=== PATIENT | female | born 1965 | race Caucasian/White ===

== ENCOUNTER 2017-01-10 12:47 | Emergency (ER) | payer OTHER ==
[~2017-01-10] VITALS: Ht 170.2 cm; Wt 79.5 kg
[2017-01-10 13:25] VITALS: Ht 170.2 cm; Wt 79.5 kg
[2017-01-10] MEDS ORDERED: MINE3.5O30 RIGHT EYE (15:20)
[2017-01-10] MEDS ORDERED: BENA5TAB2 PO (15:20)
--- NOTE | 2017-01-10 15:29 | ERD ---
ER Documentation Chief Complaint Date/Time DATE: 01/10/17 TIME: 15:27 Chief Complaint right eye redness, itchiness and minor pain x 8 days HPI This 51-year-old female complains of some redness of the right eye for last 3 days patient has a history of trauma, visual changes, fevers. She has a history of hypertension or inciting events. She is mild bitemporal headache. Patient denies having any primary care doctor. ROS All systems reviewed and are negative except as per history of present illness. Medications Home Meds Active Scripts Benazepril Hcl* (Benazepril Hcl*) 5 Mg Tablet, 5 MG PO DAILY, #30 TAB Prov:LES ASH MD 01/10/17 Mineral Oil/Petrolatum,White (ARTIFICIAL TEARS EYE OINT) 3.5 Gm Oint...g., 1 APPLIC RIGHT EYE NEEDED Y for DRY EYES, #1 EA Prov:LES ASH MD 01/10/17 Allergies Allergies: Coded Allergies: No Known Allergy (Unverified , 11/24/11) PMhx/Soc History of Surgery: No Anesthesia Reaction: No Hx Neurological Disorder: No Hx Respiratory Disorders: No Hx Cardiac Disorders: No Hx Psychiatric Problems: No Hx Miscellaneous Medical Probl: No Hx Alcohol Use: No Hx Substance Use: No Hx Tobacco Use: No Physical Exam Vitals Vital Signs Date Time Temp Pulse Resp B/P Pulse Ox O2 Delivery O2 Flow Rate FiO2 01/10/17 13:25 98.6 64 18 175/80 98 Physical Exam Const: [], Jer-[id number]. Head: Atraumatic Eyes: Normal Conjunctiva. There is a subconjunctival hemorrhage on the inferior aspect of the right eye. Eyes are PERRLA and extraocular movements intact. There is no periorbital swelling or proptosis. ENT: Normal External Ears, Nose and Mouth. Neck: Full range of motion..~ No meningismus. Resp: Clear to auscultation bilaterally Cardio: Regular rate and rhythm, no murmurs Abd: Soft, non tender, non distended. Normal bowel sounds Skin: No petechiae or rashes Back: No midline or flank tenderness Ext: No cyanosis, or edema Neur: Awake and alert Psych: Normal Mood and Affect Procedures/MDM Patient presents with subconjunctival hemorrhage on the right eye. She also has elevated blood pressure. Current signs or symptoms do not suggest endorgan damage. Visual acuity is improved in the affected eye and no significant abnormalities. Patient was treated with artificial tears will start benazepril at a low dose and primary care follow-up. Patient is advised to recheck for new or worsening symptoms with primary doctor. There is no signs or symptoms currently to suggest central lesion, threats to vision, orbital cellulitis, acute glaucoma, dendritic lesions. Departure Diagnosis: Primary Impression: Subconjunctival hemorrhage Laterality: right Qualified Code: H11.31 - Subconjunctival hemorrhage of right eye Additional Impression: Hypertension Hypertension type: unspecified Qualified Code: I10 - Hypertension, unspecified type Condition: Stable Patient Instructions: Hypertension, New (Begin Treatment), Subconjunctival Hemorrhage [facility] Usted se koroma hecho un examen mdico de control que le indica que no est en yamila condicin que requiera tratamiento urgente en el Departamento de Emergencia. Un estudio ms profundo y el tratamiento de muro condicin pueden esperar sin ningn riesgo hasta que usted sea atendida/o en el consultorio de muro mdico o yamila cl jessica. Es responsabilidad suya arreglar yamila peter para el seguimiento del monica. MANEJO DE CONDICIONES NO URGENTES EN EL FUTURO 1) Si usted tiene un mdico de atencin primaria: Usted debera llamar a muro mdico de atencin primaria antes de venir al departamento de emergencia. Despus de las horas de consultorio, muro doctor o muro asociado/a est disponible por telfono. El mdico o enfermero de ebenezer en el servicio telefnico puede asesorarle por param medio para atender el problema, o monica contrario se puede programar yamila peter. 2) Si usted no tiene un mdico de atencin primaria: Llame al mdico o clnica de referencia que aparece abajo marin las horas de consultorio para hacer yamila peter para que le vean. CLINICAS: [facility] [phone] [facility] [phone] [address] [facility] [phone] [place] [phone] [place] [phone] [facility] [phone] [address] Additional Instructions: . Cheque otro vez con muro doctor primario en el proximo pantoja or regresa para mas o nueva simptomas. LES ASH MD Jan 10, 2017 15:28
[2017-01-10 15:59] VITALS: BP 164/73; PULSE 67; RESP 18
== END 2017-01-10 16:01 | disposition home or self-care (01) ==
LOC: FTE 12:47
DX: H11.31 Conjunctival hemorrhage, right eye (principal); I10 Essential (primary) hypertension
CPT/HCPCS: 99283